=== PATIENT | female | born 2005 | race Two or more races ===

== ENCOUNTER 2025-04-20 18:37 | Emergency (ER) | payer BC, SELFPAY ==
[2025-04-20 18:39] VITALS: PULSE 118; RESP 18; O2SAT 98
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
[2025-04-20 19:24] VITALS: BP 146/98; PULSE 85; RESP 20; TEMP 36.8; O2SAT 100; BMI 24.7
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
[2025-04-20] MEDS: ACETAMINOPHEN 325 MG TABLET 650 MG PO (20:57)
[2025-04-20 22:22] VITALS: BP 130/86; PULSE 93; RESP 17; TEMP 36.9; O2SAT 98
== END 2025-04-20 22:50 | disposition home or self-care (01) ==
LOC: SERX 20:53
PROVIDERS: Emergency Provider Family Medicine
DX: S13.4XXA Sprain of ligaments of cervical spine, initial encounter (principal); S50.01XA Contusion of right elbow, initial encounter; S80.01XA Contusion of right knee, initial encounter; V43.52XA Car driver injured in collision with other type car in traffic accident, initial encounter; Y92.410 Unspecified street and highway as the place of occurrence of the external cause
CPT/HCPCS: 72040; 73070; 73562; 99283; A9270